=== PATIENT | male | born 1950 | race Hispanic/Latino ===

== ENCOUNTER 2017-09-17 02:19 | Inpatient (IN) | payer OTHER ==
[~2017-09-17] VITALS: Ht 198.1 cm; Wt 84.5 kg
[2017-09-18] VITALS (23 sets, daily range): BP systolic 98–142; BP diastolic 45–81
[2017-09-18] MEDS ORDERED: ASPI-1197 PO (03:23)
[2017-09-18] MEDS ORDERED: PRAV20TA4 PO (03:23)
[2017-09-18] MEDS ORDERED: MULT-1192 PO (03:23)
[2017-09-18] MEDS ORDERED: ACETAMINOPHEN EXTRA STRENGTH 500 MG TABLET PO PRN (03:45)
[2017-09-18] MEDS ORDERED: MORPHINE SULFATE 4 MG/1ML SYG IV PRN ×2 (03:45→14:15)
[2017-09-18] MEDS ORDERED: ALPRAZOLAM 0.25 MG TABLET PO PRN (03:45)
[2017-09-18] MEDS ORDERED: NITROGLYCERIN 0.4 MG SL TAB SL PRN (03:45)
[2017-09-18] MEDS ORDERED: NITROGLYCERIN 1GM/1 INCH PACKET TD SCH (06:00)
[2017-09-18] MEDS ORDERED: LIDOCAINE HCL 2% 20ML ONE (08:03)
[2017-09-18] MEDS ORDERED: HEPARIN SODIUM 1000UNIT/ML 10ML VIAL ONE ×3 (08:03→12:58)
[2017-09-18] MEDS ORDERED: IOPAMIDOL-370 100 ML VIAL IV ONE (08:03)
[2017-09-18] MEDS ORDERED: ISOVUE-370 50ML VIAL IV ONE (08:03)
[2017-09-18] MEDS ORDERED: MIDAZOLAM HCL 1 MG/ML 2ML VIAL ONE (08:35)
[2017-09-18] MEDS ORDERED: ENOXAPARIN SODIUM 80 MG/0.8 ML SQ SCH (09:00)
[2017-09-18] MEDS ORDERED: CLOPIDOGREL BISULFATE 75 MG TAB PO SCH (09:00)
[2017-09-18] MEDS ORDERED: LISINOPRIL 20 MG TABLET PO SCH (09:00)
[2017-09-18] MEDS ORDERED: METOPROLOL TARTRATE 25 MG TAB PO SCH (09:00)
[2017-09-18] MEDS ORDERED: ASPIRIN 81 MG EC TAB PO SCH (09:00)
[2017-09-18] MEDS ORDERED: CEFUROXIME 1.5GM+NS 100ML 100 ML IV SCH ×2 (10:00→22:15)
[2017-09-18] MEDS ORDERED: NEOSTIGMINE 5MG/5ML SYR IV ONE (10:32)
[2017-09-18] MEDS ORDERED: ROCURONIUM BROMIDE 10MG/1ML 5ML VL ONE ×2 (10:32→14:35)
[2017-09-18] MEDS ORDERED: PROTAMINE SULFATE 10 MG/ML 25ML VIAL IV ONE (10:32)
[2017-09-18] MEDS ORDERED: ESMOLOL HCL 10 MG/ML 10 ML VIAL ONE (10:32)
[2017-09-18] MEDS ORDERED: LIDOCAINE PF 2% 5ML ABBOJECT ONE (10:32)
[2017-09-18] MEDS ORDERED: GLYCOPYRROLATE 0.2 MG/ML 5 ML VIAL ONE (10:32)
[2017-09-18] MEDS ORDERED: AMINOCAPROIC ACID 250 MG/ML 20 ML VIAL IV ONE (10:33)
[2017-09-18] MEDS ORDERED: MIDAZOLAM HCL 1 MG/ML 5ML VIAL ONE (10:33)
[2017-09-18] MEDS ORDERED: PROPOFOL 10 MG/ML 20ML VIAL IV ONE (10:33)
[2017-09-18] MEDS ORDERED: NOREPINEPHRINE BITARTRATE 1 MG/1 ML ML IV ONE (10:33)
[2017-09-18] MEDS ORDERED: EPINEPHRINE 1 MG/ML AMPULE ONE (10:33)
[2017-09-18] MEDS ORDERED: MILRINONE-D5W 20 MG/100 ML 0 ML IV ONE (10:33)
[2017-09-18] MEDS: CEFUROXIME SODIUM 1.5 GM VIAL IVP SCH ×3 (10:45→22:15)
[2017-09-18] MEDS ORDERED: BACITRACIN 50,000 UNIT VIAL ONE (10:52)
[2017-09-18] MEDS ORDERED: OCTYL 2-CYANOACRYLATE 1 EACH TP ONE (10:52)
[2017-09-18] MEDS ORDERED: PAPAVERINE HCL 30 MG/ML 2ML VIAL ONE (10:52)
[2017-09-18 11:26] LABS: HEMATOCRIT 42.5 % (42-54); MEAN CORPUSCULAR HEMOGLOBIN 29.9 pg (27.0-33.0); MEAN CORPUSCULAR HGB CONC 34.9 g/dL (32.0-36.0); MEAN CORPUSCULAR VOLUME 85.8 fL (79-99); PLATELET COUNT (AUTO) 256 K/uL (130-400); RED BLOOD CELL COUNT(AUTO) 4.95 MIL/uL (4.50-6.20); RED CELL DISTRIBUTION WIDTH 12.8 % (11.0-15.5); WHITE BLOOD COUNT (AUTO) 12.4 K/uL (4.8-10.8)
[2017-09-18 11:33] LABS: HEMOGLOBIN A1C 5.9 % (4.0-6.0)
[2017-09-18 11:37] LABS: PARTIAL THROMBOPLASTIN TIME 28.6 SEC (26.3-35.5); PROTHROMBIN TIME 10.5 SEC (9.6-11.6)
[2017-09-18] MEDS ORDERED: NITROGLYCERIN 50 MG/D5% WATER 1 BOT ONE (11:38)
[2017-09-18 11:41] LABS: CREATININE 0.9 mg/dL (0.5-1.5)
[2017-09-18] MEDS ORDERED: SODIUM CHLORIDE 0.9% 1000ML 1,000 ML IV ONE (11:54)
[2017-09-18] MEDS ORDERED: FENTANYL CITRATE PF 50 MCG/1 ML 2ML VIAL ONE ×3 (12:50)
[2017-09-18] MEDS ORDERED: THROMBIN-JMI 5000 UNIT/VIAL TP ONE (12:59)
[2017-09-18 13:00] LABS: ABG BASE EXCESS -1.9 mmol/L (-2.0-3.0); ABG HCO3 23.2 mmol/L (21.0-28.0); ABG OXYGEN SATURATION 99.5 % (95.0-99.0); ABG PCO2 41 mmHg (35-48)
[2017-09-18] MEDS ORDERED: SODIUM CHLORIDE 0.9% 250 ML IV PRN (14:15)
[2017-09-18] MEDS ORDERED: SODIUM BICARB 8.4% 50ML SYRINGE IV PRN (14:15)
[2017-09-18] MEDS ORDERED: MAGNESIUM 2GM PREMIX 50ML 50 ML IV PRN (14:15)
[2017-09-18] MEDS ORDERED: MORPHINE SULFATE 2 MG/ML 1ML SYG IV PRN (14:15)
[2017-09-18] MEDS ORDERED: SODIUM CHLORIDE 0.9% 10 ML VIAL IVP PRN (14:15)
[2017-09-18] MEDS ORDERED: SODIUM CHLORIDE 0.9% 500ML 500 ML IV SCH (14:15)
[2017-09-18] MEDS ORDERED: EPINEPHRINE 2 MG in SODIUM CHLORIDE 0.9% 250 ML IV PRN (14:15)
[2017-09-18] MEDS ORDERED: ACETAMINOPHEN 650 MG SUPPOSITORY RC PRN (14:15)
[2017-09-18] MEDS ORDERED: GLUCAGON 1MG KIT 1 MG ML IM PRN (14:15)
[2017-09-18] MEDS ORDERED: NICARDIPINE HCL 100 MG in SODIUM CHLORIDE 0.9% 100 ML IV PRN (14:15)
[2017-09-18] MEDS ORDERED: POTASSIUM PHOS 15 mMOL+NS250ML 250 ML IV PRN (14:15)
[2017-09-18] MEDS ORDERED: AMINOCAPROIC ACID 15,000 MG in SODIUM CHLORIDE 0.9% 250 ML IV SCH (14:15)
[2017-09-18] MEDS ORDERED: DEXTROSE 50%-WATER 50 ML DISP.SYRIN IV PRN (14:15)
[2017-09-18] MEDS ORDERED: SODIUM CHLORIDE 0.9% 1000ML 1,000 ML IV SCH (14:15)
[2017-09-18] MEDS ORDERED: PROPOFOL 1000 MG/100 ML 100 ML IV PRN (14:15)
[2017-09-18] MEDS ORDERED: NITROGLYCERIN 50 MG/D5% WATER 250 BOT IV SCH (14:15)
[2017-09-18] MEDS ORDERED: CALCIUM GLUCONATE 1 GM in SODIUM CHLORIDE 0.9% 50 ML IV PRN (14:15)
[2017-09-18] MEDS ORDERED: ALBUMIN (HUMAN) 5% 250 ML IV PRN (14:15)
[2017-09-18 14:34] LABS: ABG BASE EXCESS -4.1 mmol/L (-2.0-3.0); ABG HCO3 21.5 mmol/L (21.0-28.0); ABG OXYGEN SATURATION 99.3 % (95.0-99.0); ABG PCO2 41 mmHg (35-48)
[2017-09-18] MEDS ORDERED: SODIUM BICARB 50MEQ 50ML VIAL ONE (14:39)
[2017-09-18] MEDS ORDERED: MORPHINE SULFATE 10 MG/ML 1ML SYG ONE (14:57)
[2017-09-18] MEDS ORDERED: DESMOPRESSIN ACETATE 4 MCG/ML 1ML AMP ONE (15:02)
[2017-09-18 15:37] LABS: ABG BASE EXCESS -5.7 mmol/L (-2.0-3.0); ABG HCO3 19.1 mmol/L (21.0-28.0); ABG OXYGEN SATURATION 97.8 % (95.0-99.0); ABG PCO2 35 mmHg (35-48)
[2017-09-18 15:44] LABS: HEMATOCRIT 36.2 % (42-54); MEAN CORPUSCULAR HEMOGLOBIN 29.4 pg (27.0-33.0); MEAN CORPUSCULAR HGB CONC 33.8 g/dL (32.0-36.0); MEAN CORPUSCULAR VOLUME 86.8 fL (79-99); PLATELET COUNT (AUTO) 278 K/uL (130-400); RED BLOOD CELL COUNT(AUTO) 4.16 MIL/uL (4.50-6.20); RED CELL DISTRIBUTION WIDTH 13.2 % (11.0-15.5)
[2017-09-18 15:56] LABS: CREATININE 0.8 mg/dL (0.5-1.5); MAGNESIUM 1.5 mg/dL (1.80-2.40); PHOSPHORUS 3.6 mg/dL (2.5-4.9); POTASSIUM 3.6 mmol/L (3.5-5.1)
[2017-09-18 15:59] LABS: WHITE BLOOD COUNT (AUTO) 31.3 K/uL (4.8-10.8)
[2017-09-18 16:26] LABS: BAND NEUTROPHILS % (MANUAL) 7 % (0-2); LYMPHOCYTES % (MANUAL) 14 % (22-44); METAMYELOCYTES % 1 % (0-0); MONOCYTES % (MANUAL) 5 % (2-9); SEGMENTED NEUTROPHILS % 73 % (40-70)
[2017-09-18 16:27] LABS: MAN.DIFF COMMENT-IMPRESSION MANUAL DIFFERENTIAL
[2017-09-18] MEDS: POTASSIUM CHLORIDE 20MEQ/100ML 100 ML IV PRN ×3 (16:35→22:40)
[2017-09-18 17:50] LABS: ABG BASE EXCESS -4.2 mmol/L (-2.0-3.0); ABG HCO3 20.5 mmol/L (21.0-28.0); ABG PCO2 36 mmHg (35-48)
[2017-09-18] MEDS: INSULIN REGULAR, HUMAN 3ML 100 UNIT in SODIUM CHLORIDE 0.9% 99 ML IV SCH ×2 (18:27)
[2017-09-18 19:43] LABS: ABG BASE EXCESS -0.8 mmol/L (-2.0-3.0); ABG HCO3 24.2 mmol/L (21.0-28.0); ABG OXYGEN SATURATION 94.3 % (95.0-99.0); ABG PCO2 41 mmHg (35-48)
[2017-09-18] MEDS ORDERED: EPINEPHRINE 8 MG in SODIUM CHLORIDE 0.9% 250 ML IV PRN (20:00)
[2017-09-18] MEDS: HYDROCODONE/ACETAMINOPHEN 5/325 MG TAB PO PRN (20:41)
[2017-09-18] MEDS: ALBUMIN (HUMAN) 5% 500 ML IV SCH (21:57)
[2017-09-18 22:11] LABS: APPEARANCE,URINE Clear (CLEAR); BILIRUBIN,URINE Negative (NEGATIVE); COLOR,URINE Dark Yellow (YELLOW); GLUCOSE, URINE (UA) Negative (NEGATIVE); KETONES,URINE Negative (NEGATIVE); LEUKOCYTE ESTERASE ,URINE Trace (NEGATIVE); NITRATE,URINE Negative (NEGATIVE); OCCULT BLOOD,URINE Nonhemolyzed Trace (NEGATIVE); PH,URINE 6.5 (5.0-8.0); PROTEIN,URINE POS 1+ (NEGATIVE)
[2017-09-18 22:22] LABS: POTASSIUM 4.1 mmol/L (3.5-5.1)
[2017-09-18 22:25] LABS: BACTERIA,URINE Few /HPF (None Seen); SQUAMOUS EPITHELIAL CELL,UR 0-2 /HPF (0-2)
[2017-09-18] MEDS ORDERED: IBUPROFEN 800 MG TAB PO ONE (22:30)
[2017-09-18] MEDS ORDERED: DEXAMETHASONE SOD PHOSPHATE 4 MG/ML 1ML VIAL IVP SCH (23:00)
[2017-09-18] MEDS ORDERED: DEXAMETHASONE SOD PHOSPHATE 4 MG/ML 1ML VIAL ONE (23:13)
[2017-09-19] VITALS (24 sets, daily range): BP systolic 99–133; BP diastolic 44–75
[2017-09-19] MEDS: HYDROCODONE/ACETAMINOPHEN 5/325 MG TAB PO PRN ×4 (01:01→17:02)
[2017-09-19] MEDS: ONDANSETRON HCL 4 MG/2 ML VIAL IV PRN ×3 (01:06→17:01)
[2017-09-19 04:39] LABS: HEMATOCRIT 30.6 % (42-54); MEAN CORPUSCULAR HEMOGLOBIN 30.9 pg (27.0-33.0); MEAN CORPUSCULAR HGB CONC 35.4 g/dL (32.0-36.0); MEAN CORPUSCULAR VOLUME 87.2 fL (79-99); PLATELET COUNT (AUTO) 216 K/uL (130-400); RED BLOOD CELL COUNT(AUTO) 3.51 MIL/uL (4.50-6.20); WHITE BLOOD COUNT (AUTO) 20.1 K/uL (4.8-10.8)
[2017-09-19 04:50] LABS: CREATININE 0.8 mg/dL (0.5-1.5); PHOSPHORUS 2.5 mg/dL (2.5-4.9); POTASSIUM 4.1 mmol/L (3.5-5.1)
[2017-09-19] MEDS: POTASSIUM CHLORIDE 20MEQ/100ML 100 ML IV PRN (05:07)
[2017-09-19] MEDS ORDERED: PANTOPRAZOLE 40 MG/VIAL IV SCH (09:00)
[2017-09-19] MEDS: CEFUROXIME SODIUM 1.5 GM VIAL IVP SCH ×2 (09:17→21:23)
[2017-09-19] MEDS: PANTOPRAZOLE SODIUM 40 MG TABLET.DR PO SCH (10:53)
[2017-09-19] MEDS: KETOROLAC TROMETHAMINE 15MG/ML IV SCH ×2 (12:07→17:03)
[2017-09-19] MEDS: SODIUM CHLORIDE 0.9% 1000ML 1,000 ML IV SCH ×2 (12:30→21:15)
[2017-09-19] MEDS: INSULIN REGULAR, HUMAN 3ML 100 UNIT in SODIUM CHLORIDE 0.9% 99 ML IV SCH ×2 (15:20)
[2017-09-19] MEDS: ALBUMIN (HUMAN) 5% 500 ML IV SCH (15:43)
[2017-09-19] MEDS ORDERED: FUROSEMIDE 10 MG/ML 2ML VIAL IV ONE (16:00)
[2017-09-19] MEDS: NOREPINEPHRINE 4MG/NS 250ML 250 ML IV PRN (17:23)
[2017-09-19] MEDS: METOPROLOL TARTRATE 25 MG TAB PO SCH (20:14)
[2017-09-19] MEDS: ATORVASTATIN CALCIUM 20 MG TABLET PO SCH (20:30)
[2017-09-20] VITALS (24 sets, daily range): BP systolic 102–141; BP diastolic 55–74
[2017-09-20] MEDS: KETOROLAC TROMETHAMINE 15MG/ML IV SCH ×5 (00:32→23:19)
[2017-09-20] MEDS: NOREPINEPHRINE 4MG/NS 250ML 250 ML IV PRN (03:10)
[2017-09-20 04:32] LABS: HEMATOCRIT 26.2 % (42-54); MEAN CORPUSCULAR HEMOGLOBIN 29.8 pg (27.0-33.0); MEAN CORPUSCULAR VOLUME 87.6 fL (79-99); PLATELET COUNT (AUTO) 187 K/uL (130-400); RED BLOOD CELL COUNT(AUTO) 2.99 MIL/uL (4.50-6.20); WHITE BLOOD COUNT (AUTO) 17.4 K/uL (4.8-10.8)
[2017-09-20 04:42] LABS: CREATININE 0.8 mg/dL (0.5-1.5); POTASSIUM 3.7 mmol/L (3.5-5.1)
[2017-09-20] MEDS: POTASSIUM CHLORIDE 20MEQ/100ML 100 ML IV PRN (05:26)
[2017-09-20] MEDS: METOPROLOL TARTRATE 25 MG TAB PO SCH ×2 (09:00→20:19)
[2017-09-20] MEDS: SIMETHICONE 80 MG TAB.CHEW PO SCH ×4 (10:20→20:19)
[2017-09-20] MEDS: PANTOPRAZOLE SODIUM 40 MG TABLET.DR PO SCH (10:20)
[2017-09-20] MEDS: FUROSEMIDE 20 MG TABLET PO SCH ×2 (10:21→17:14)
[2017-09-20] MEDS: ASPIRIN 81MG TAB.CHEW PO SCH (10:21)
[2017-09-20] MEDS: MIDODRINE HCL 5 MG TABLET PO SCH ×2 (13:52→20:18)
[2017-09-20] MEDS: ATORVASTATIN CALCIUM 20 MG TABLET PO SCH (20:19)
[2017-09-20] MEDS: ACETAMINOPHEN 325 MG TAB PO PRN (23:56)
[2017-09-21] VITALS (10 sets, daily range): BP systolic 92–110; BP diastolic 46–59
[2017-09-21 04:28] LABS: HEMATOCRIT 23.8 % (42-54); MEAN CORPUSCULAR HEMOGLOBIN 31.6 pg (27.0-33.0); MEAN CORPUSCULAR VOLUME 87.7 fL (79-99); PLATELET COUNT (AUTO) 183 K/uL (130-400); RED BLOOD CELL COUNT(AUTO) 2.71 MIL/uL (4.50-6.20); RED CELL DISTRIBUTION WIDTH 12.5 % (11.0-15.5); WHITE BLOOD COUNT (AUTO) 10.6 K/uL (4.8-10.8)
[2017-09-21 04:35] LABS: CREATININE 0.9 mg/dL (0.5-1.5); POTASSIUM 3.7 mmol/L (3.5-5.1)
[2017-09-21] MEDS: POTASSIUM CHLORIDE 20MEQ/100ML 100 ML IV PRN (04:56)
[2017-09-21] MEDS: KETOROLAC TROMETHAMINE 15MG/ML IV SCH ×3 (05:11→17:00)
[2017-09-21] MEDS: PANTOPRAZOLE SODIUM 40 MG TABLET.DR PO SCH (06:03)
[2017-09-21] MEDS: ASPIRIN 81MG TAB.CHEW PO SCH (08:10)
[2017-09-21] MEDS: SIMETHICONE 80 MG TAB.CHEW PO SCH ×4 (08:10→21:08)
[2017-09-21] MEDS: MIDODRINE HCL 5 MG TABLET PO SCH ×3 (08:10→21:08)
[2017-09-21] MEDS: FUROSEMIDE 20 MG TABLET PO SCH (08:10)
[2017-09-21] MEDS: ENOXAPARIN SODIUM 30 MG/0.3 ML SQ SCH (08:11)
[2017-09-21] MEDS ORDERED: ALBUMIN (HUMAN) 25% 100 ML IV ONE ×2 (09:30→11:52)
[2017-09-21] MEDS ORDERED: CALCIUM GLUCONATE 2 GM in SODIUM CHLORIDE 0.9% 50 ML IV SCH (09:30)
[2017-09-21] MEDS: POTASSIUM CHLORIDE 20 MEQ ERTAB PO SCH (11:58)
[2017-09-21] MEDS: ATORVASTATIN CALCIUM 20 MG TABLET PO SCH (21:07)
[2017-09-21] MEDS: ACETAMINOPHEN 325 MG TAB PO PRN (23:06)
[2017-09-22] VITALS (7 sets, daily range): BP systolic 115–160; BP diastolic 61–81
[2017-09-22 04:41] LABS: BASOPHILS % (AUTO) 0.3 % (0.0-5.0); HEMATOCRIT 24.9 % (42-54); LYMPHOCYTES % (AUTO) 23.6 % (21.0-51.0); MEAN CORPUSCULAR HEMOGLOBIN 31.4 pg (27.0-33.0); MEAN CORPUSCULAR HGB CONC 35.8 g/dL (32.0-36.0); MEAN CORPUSCULAR VOLUME 87.8 fL (79-99); MONOCYTES % (AUTO) 9.2 % (3.0-13.0); NEUTROPHILS % (AUTO) 65.9 % (40.0-77.0); PLATELET COUNT (AUTO) 222 K/uL (130-400); RED BLOOD CELL COUNT(AUTO) 2.83 MIL/uL (4.50-6.20); RED CELL DISTRIBUTION WIDTH 12.7 % (11.0-15.5)
[2017-09-22 04:48] LABS: CREATININE 0.9 mg/dL (0.5-1.5)
[2017-09-22] MEDS: PANTOPRAZOLE SODIUM 40 MG TABLET.DR PO SCH (06:48)
[2017-09-22] MEDS ORDERED: FUROSEMIDE 20 MG TABLET PO SCH (09:00)
[2017-09-22] MEDS: MIDODRINE HCL 5 MG TABLET PO SCH (09:00)
[2017-09-22] MEDS ORDERED: MAGNESIUM HYDROXIDE 30 ML/UDCUP PO PRN (09:30)
[2017-09-22] MEDS: POTASSIUM CHLORIDE 20 MEQ ERTAB PO SCH ×2 (09:30→10:18)
[2017-09-22] MEDS: SIMETHICONE 80 MG TAB.CHEW PO SCH ×4 (10:18→21:20)
[2017-09-22] MEDS: CLOPIDOGREL BISULFATE 75 MG TAB PO SCH (10:18)
[2017-09-22] MEDS: ASPIRIN 81MG TAB.CHEW PO SCH (10:18)
[2017-09-22] MEDS: ENOXAPARIN SODIUM 30 MG/0.3 ML SQ SCH (10:18)
[2017-09-22] MEDS: POLYETHYLENE GLYCOL 3350 17 GM POWD.PACK PO SCH (10:21)
[2017-09-22] MEDS ORDERED: MIDODRINE HCL 5 MG TABLET PO SCH (21:00)
[2017-09-22] MEDS: ATORVASTATIN CALCIUM 20 MG TABLET PO SCH (21:20)
[2017-09-23 04:14] VITALS: BP 137/81
[2017-09-23] MEDS: PANTOPRAZOLE SODIUM 40 MG TABLET.DR PO SCH (06:04)
[2017-09-23 07:59] VITALS: BP 125/68
[2017-09-23] MEDS: ASPIRIN 81MG TAB.CHEW PO SCH (08:46)
[2017-09-23] MEDS: SIMETHICONE 80 MG TAB.CHEW PO SCH ×4 (08:46→20:03)
[2017-09-23] MEDS: CLOPIDOGREL BISULFATE 75 MG TAB PO SCH (08:46)
[2017-09-23] MEDS: POTASSIUM CHLORIDE 20 MEQ ERTAB PO SCH ×2 (08:47→08:51)
[2017-09-23] MEDS: POLYETHYLENE GLYCOL 3350 17 GM POWD.PACK PO SCH (08:47)
[2017-09-23] MEDS: ENOXAPARIN SODIUM 30 MG/0.3 ML SQ SCH (08:51)
[2017-09-23] MEDS: METOPROLOL TARTRATE 25 MG TAB PO SCH ×2 (09:33→19:57)
[2017-09-23 11:00] VITALS: BP 108/75
[2017-09-23 16:11] VITALS: BP 123/69
[2017-09-23 19:08] VITALS: BP 140/65
[2017-09-23] MEDS ORDERED: ATORVASTATIN CALCIUM 40 MG TABLET PO SCH (21:00)
[2017-09-24] MEDS: ACETAMINOPHEN 325 MG TAB PO PRN
[2017-09-24 00:10] VITALS: BP 113/65
[2017-09-24 03:40] VITALS: BP 102/61
[2017-09-24 03:57] LABS: MEAN CORPUSCULAR HEMOGLOBIN 31.4 pg (27.0-33.0); MEAN CORPUSCULAR HGB CONC 36.4 g/dL (32.0-36.0); MEAN CORPUSCULAR VOLUME 86.3 fL (79-99); PLATELET COUNT (AUTO) 404 K/uL (130-400); RED BLOOD CELL COUNT(AUTO) 3.36 MIL/uL (4.50-6.20); RED CELL DISTRIBUTION WIDTH 12.7 % (11.0-15.5)
[2017-09-24 04:07] LABS: CREATININE 0.9 mg/dL (0.5-1.5)
[2017-09-24] MEDS: PANTOPRAZOLE SODIUM 40 MG TABLET.DR PO SCH (06:31)
[2017-09-24 07:50] VITALS: BP 103/67
[2017-09-24] MEDS: METOPROLOL TARTRATE 25 MG TAB PO SCH (07:50)
[2017-09-24] MEDS: POLYETHYLENE GLYCOL 3350 17 GM POWD.PACK PO SCH (07:51)
[2017-09-24] MEDS: ASPIRIN 81MG TAB.CHEW PO SCH (07:51)
[2017-09-24] MEDS: CLOPIDOGREL BISULFATE 75 MG TAB PO SCH (07:51)
[2017-09-24] MEDS: ENOXAPARIN SODIUM 30 MG/0.3 ML SQ SCH (08:00)
[2017-09-24] MEDS: SIMETHICONE 80 MG TAB.CHEW PO SCH ×2 (08:00→13:28)
[2017-09-24] MEDS: POTASSIUM CHLORIDE 20 MEQ ERTAB PO SCH (08:03)
[2017-09-24] MEDS ORDERED: TRAM50TA2 PO (09:00)
[2017-09-24] MEDS ORDERED: FUROSEMIDE 20 MG TABLET PO SCH (09:00)
[2017-09-24 11:09] VITALS: BP 108/59
[2017-09-24 16:03] VITALS: BP 113/60
== END 2017-09-24 16:15 | DRG 233 ==
LOC: 2AH 09-18 02:22 → 2CV 09-18 13:01 → 2CH 09-18 19:09 → 2AH 09-21 19:57
PROVIDERS: ADMIT Family Medicine; ATTEND Family Medicine
PROC: 021109W Bypass Coronary Artery, Two Arteries from Aorta with Autologous Venous Tissue, Open Approach (ICD-10-PCS; 2017-09-18)
PROC: 06BQ4ZZ Excision of Left Saphenous Vein, Percutaneous Endoscopic Approach (ICD-10-PCS; 2017-09-18)
PROC: B2151ZZ Fluoroscopy of Left Heart using Low Osmolar Contrast (ICD-10-PCS; 2017-09-18)
PROC: 4A023N7 Measurement of Cardiac Sampling and Pressure, Left Heart, Percutaneous Approach (ICD-10-PCS; 2017-09-18)
PROC: B2111ZZ Fluoroscopy of Multiple Coronary Arteries using Low Osmolar Contrast (ICD-10-PCS; principal; 2017-09-18 12:00)
PROC: 02100Z9 Bypass Coronary Artery, One Artery from Left Internal Mammary, Open Approach (ICD-10-PCS; 2017-09-18 12:00)
DX: I25.10 Atherosclerotic heart disease of native coronary artery without angina pectoris (principal); I21.4 Non-ST elevation (NSTEMI) myocardial infarction; I23.7 Postinfarction angina; D62 Acute posthemorrhagic anemia; J98.11 Atelectasis; Q25.0 Patent ductus arteriosus; E78.5 Hyperlipidemia, unspecified; E87.6 Hypokalemia; I10 Essential (primary) hypertension; Z79.02 Long term (current) use of antithrombotics/antiplatelets; Z79.82 Long term (current) use of aspirin; Z79.899 Other long term (current) drug therapy; Z82.49 Family history of ischemic heart disease and other diseases of the circulatory system
CPT/HCPCS: 36415; 71045; 71046; 80048; 80061; 81001; 82330; 82435; 82803; 82947; 82948; 83036; 83605; 83735; 83880; 84100; 84132; 84295; 84484; 85007; 85018; 85025; 85027; 85347; 85610; 85730; 86850; 86900; 86901; 86922; 93005; 93458; 93880; 94002; 94010; 94150; 97039; 99152; 99153; A4218; A7048; C1760; C1894; C9113; J0171; J0610; J0697; J1100; J1644; J1650; J1815; J1885; J1940; J2001; J2250; J2260; J2270; J2405; J2440; J2597; J2704; J2710; J2720; J3010; J3475; J3480; J3490; J7030; J7040; J7120; P9045; P9046; Q9967